=== PATIENT | male | born 1950 | race Caucasian/White ===

== ENCOUNTER → 2016-06-07 | Outpatient (CLI) | payer BC ==
[~2016-06-07] MED LIST: APIX1TAB3 PO; ATOR-24 PO; DOFE125C PO; HYDR-5688 PO; METO25TA3 PO; OMEG10007 PO
--- NOTE | 2016-06-07 11:05 | DIAGNOSTIC IMAGING REPORT ---
LEFT KNEE MRI HISTORY: Left knee pain. LATERAL MENISCUS TEAR COMPARISON STUDY: Left knee 03/23/2016. TECHNIQUE: Multiplanar multisequence MRI of the left knee was performed according to standard department protocol without the use of contrast. FINDINGS: Menisci: The medial and lateral menisci are intact. Ligaments: The anterior and posterior cruciate ligaments are intact. The medial and lateral collateral ligaments are normal in appearance. Extensor mechanism: Mild thickening and mild increased signal within the distal quadriceps tendon. The patellar ligament is intact. Articular cartilage and bone: Normal marrow signal intensity seen throughout the visualized osseous structures. No fracture or dislocation. Mild cartilage fraying at the median ridge of the patella. Mild chondromalacia at the medial aspect of the medial tibial plateau. Joint effusion: None. Soft tissues: Tiny popliteal cyst. Mild prepatellar soft tissue edema. Moderate edema within the suprapatellar fat pad. IMPRESSION: 1. No evidence for meniscal tear. 2. Mild distal quadriceps tendinopathy. 3. Mild prepatellar soft tissue edema. 4. Tiny popliteal cyst. 5. Mild patellar and medial tibial chondromalacia. Electronically signed by: Ezra Cade M.D. 06/07/2016 11:03 AM Dictated Date/Time: 06/07/2016 10:58 AM
== END | disposition home or self-care (01) ==
LOC: C.MRI 09:38
PROVIDERS: ATTEND Physical Medicine & Rehabilitation Sports Medicine
DX: S83.262D Peripheral tear of lateral meniscus, current injury, left knee, subsequent encounter (principal); X58.XXXD Exposure to other specified factors, subsequent encounter